=== PATIENT | female | born 1975 | race Two or more races ===

== ENCOUNTER 2020-10-31 10:21 | Emergency (ER) | payer OTHER ==
[2020-10-31 10:30] VITALS: BP 110/69; PULSE 82; TEMP 98; BMI 35.0
[2020-10-31] MEDS ORDERED: METOCLOPRAMIDE HCL INJECTION 10 MG/2 ML VIAL IVPUSH ONE (10:49)
[2020-10-31] MEDS ORDERED: SODIUM CHLORIDE 0.9% 500 ML INFUS.BAG IV ONE (10:49)
[2020-10-31] MEDS ORDERED: METOCLOPRAMIDE HCL INJECTION 10 MG/2 ML VIAL ONE (10:54)
== END 2020-10-31 12:46 | disposition home or self-care (01) ==
LOC: JERFT 10:21 → JER 10:21 → JERFT 12:46
PROC: 3E033GC Introduction of Other Therapeutic Substance into Peripheral Vein, Percutaneous Approach (ICD-10-PCS; principal; 2020-10-31)
DX: R51.9 Headache, unspecified (principal)
CPT/HCPCS: 36415; 70450-TC; 99285-25; C9803; U0003; U0005

== ENCOUNTER → 2021-03-20 | Day surgery (SDC) | payer OTHER | END | disposition home or self-care (01) | LOC: FMAMMOTONE 08:30 | PROVIDERS: ATTEND Family Medicine | PROC: 0HBU3ZX Excision of Left Breast, Percutaneous Approach, Diagnostic (ICD-10-PCS; principal; 2021-03-20) | DX: N64.89 Other specified disorders of breast (principal); R92.8 Other abnormal and inconclusive findings on diagnostic imaging of breast | CPT/HCPCS: 19081; 88305-TC; A4648 ==

== ENCOUNTER 2022-10-08 05:08 | Day surgery (SDC) | payer OTHER ==
[2022-10-07 09:31] VITALS: BMI 35.7
[2022-10-08 11:04] VITALS: TEMP 98.2
[2022-10-08 11:32] VITALS: RESP 18
[2022-10-08 11:35] VITALS: BP 106/55; PULSE 56
== END 2022-10-08 11:40 | disposition home or self-care (01) ==
LOC: JASU-ENDO 05:08
PROVIDERS: ATTEND Internal Medicine Gastroenterology
PROC: 0DJD8ZZ Inspection of Lower Intestinal Tract, Via Natural or Artificial Opening Endoscopic (ICD-10-PCS; principal; 2022-10-08 10:00)
DX: Z12.11 Encounter for screening for malignant neoplasm of colon (principal)
CPT/HCPCS: 81025

== ENCOUNTER 2023-07-09 10:18 | Emergency (ER) | payer OTHER ==
[2023-07-09] MEDS ORDERED: ACETAMINOPHEN 500 MG TABLET (FP) ONE (10:57)
[2023-07-09] MEDS ORDERED: IBUPROFEN 600 MG TABLET (FP) PO ONE (10:57)
[2023-07-09 11:00] VITALS: BP 133/71; PULSE 92; RESP 18; TEMP 97.9; BMI 32.8
[2023-07-09] MEDS: IBUPROFEN 600 MG TABLET (FP) PO ONE (11:00)
[2023-07-09] MEDS: ACETAMINOPHEN 500 MG TABLET (FP) PO ONE (11:00)
[2023-07-09 11:33] LABS: THROAT:GRP A STREP NOT DETECTED (NOTDETECTED)
== END 2023-07-09 13:56 | disposition home or self-care (01) ==
LOC: JERFT 10:18
DX: J02.9 Acute pharyngitis, unspecified (principal); M54.2 Cervicalgia; M54.9 Dorsalgia, unspecified; R51.9 Headache, unspecified; Z20.822 Contact with and (suspected) exposure to COVID-19
CPT/HCPCS: 0241U-QW; 87651; 99283-25